=== PATIENT | female | born 1990 | race Caucasian/White ===

== ENCOUNTER → 2016-12-20 | Outpatient (CLI) | payer BC ==
--- NOTE | 2016-12-20 14:53 | Diagnostic Imaging Report ---
Two views of the right knee. INDICATION: Right knee pain. FINDINGS: There is no fracture, dislocation or radiopaque foreign body. There is a moderate suprapatellar effusion. No significant joint space narrowing is seen. Very minimal osteophyte formation of the patellofemoral and medial compartments are noted. IMPRESSION: There is a moderate suprapatellar effusion. No fracture seen. Dictated by: Dictated on workstation # [id number]
== END ==
LOC: RAD 13:37
PROVIDERS: ATTEND Nurse Practitioner Family
DX: M25.461 Effusion, right knee (principal)
CPT/HCPCS: 73562

== ENCOUNTER 2020-09-24 15:17 | Emergency (ER) | payer BC ==
[~2020-09-24] VITALS: Ht 180 cm; Wt 99.8 kg
[2020-09-24] MEDS ORDERED: LIDOCAINE 1% INJ 20 ML 20 ML VIAL INJ ONE (15:30)
[2020-09-24] MEDS ORDERED: TETANUS,DIPTH,PERTUSS P/F (BOOSTRIX) 0.5 ML VIAL IM ONE (15:45)
--- NOTE | 2020-09-24 15:56 | Diagnostic Imaging Report ---
EXAMINATION: Left hand at 3:42 PM. INDICATION: Finger pain. TECHNIQUE/COMPARISON: A single AP view of the hand and AP and lateral views of the 3rd digit were obtained. There are no prior studies available for comparison. FINDINGS: By history, the patient has had a saw injury to the tip of the 3rd digit. There is irregularity of the soft tissues in this area, consistent with a laceration. There is no fracture identified, however, and there is no sign of a radiopaque foreign body. No other bony abnormality of the hand is identified. IMPRESSION: There is evidence of a soft tissue injury to the tip of the 3rd digit but there is no sign of a fracture or of a radiopaque foreign body. Dictated by: Dictated on workstation # [id number]
--- NOTE | 2020-09-24 17:04 | ED Lower Extremity ---
General Chief Complaint: Laceration Stated Complaint: R HAND CUT FINGERS Nursing Triage Note: PT AMB TO FT 1 W C/O FINGER PAIN AFTER CUTTING THE TIP HER 3RD FINGER ON A TABLE SAW AROUND 1515 TODAY. WOUND APPEARS TO HAVE MILD BLEEDING. PT REPORTS SHES NOT UTD ON TETANUS VACCINE. Source: patient Exam Limitations: no limitations History of Present Illness Date Seen by Provider: Sep 24, 2020 Allergies and Home Medications Allergies Coded Allergies: No Known Drug Allergies (Unverified , 09/24/20) Home Medications Sulfamethoxazole/Trimethoprim 1 Each Tablet, 1 EACH PO BID Prescribed by: LINDA KENT on 09/24/20 6534 Past Iavqfsk-Jgfxdk-Icztjq Hx Patient Social History Tobacco Use?: No Smoking Status: Never a Smoker Substance use?: No Alcohol Use?: No Pt feels they are or have been: No Immunizations Up To Date First/Initial COVID19 Vaccinat: 2020 Second COVID19 Vaccination Josep: 2020 COVID19 Vaccine Jute Bag Clipper: GLADYS MODERNA Physical Exam Vital Signs Vital Signs - First Documented 09/24/20 15:28 Temp 37.0 Pulse 57 Resp 22 B/P (MAP) 130/85 (100) Pulse Ox 98 O2 Delivery Room Air Capillary Refill : Less Than 3 Seconds Height, Weight, BMI Height: '" Weight: lbs. oz. kg; 30.00 BMI Method: Procedures/Interventions Wound Location: Upper Extremities Other Wound Location Left third finger Wound Length (cm): 2 Wound's Depth, Shape: irregular, flap, nail-avulsed, sub Q Wound Explored: clean Irrigated w/ Saline (ccs): 500 Betadine Prep?: Yes Anesthesia: 1% Lidocaine Volume Anesthetic (ccs): 6 Suture: Vicryl Suture Size: 3-0 Number of Sutures: 7 Layer Closure?: 1 Sterile Dressing Applied?: Yes Progress Skin was scrubbed with alcohol prior to performing digital block. Anesthesia was achieved with digital block. Cut surface was also sprayed with lidocaine. Wound was cleaned with saline and chlorhexidine. It was then rinsed with al cohol. Cleaning caused bleeding to occur. A finger tourniquet was applied, Betadine prep was applied and the wound was repaired with Vicryl suture. Care was taken to line up the flap edges carefully. There was a small amount of nail and nailbed skin tissue avulsed. This area was a few millimeters in diameter and was left open. After repair was complete, finger tourniquet was removed and there was hemostasis. Patient tolerated the procedure well. Progress/Results/Core Measures Results/Orders My Orders Orders - LINDA MCKENZIE MD Finger(S) (09/24/20 15:30) Lidocaine 1% Inj 20 Ml (Xylocaine 1% Inj (09/24/20 15:30) Dipht,Pertuss(Acell),Tet Adult (Boostrix (09/24/20 15:45) Medications Given in ED Current Medications Medications Dose Ordered Sig/Elaine Route Start Time Stop Time Status Last Admin Dose Admin Diphtheria/ Tetanus/Acell Pertussis 0.5 ml ONCE ONCE IM 09/24/20 15:45 09/24/20 15:46 DC 09/24/20 16:08 0.5 ML Lidocaine HCl 20 ml ONCE ONCE INJ 09/24/20 15:30 09/24/20 15:32 DC 09/24/20 16:09 20 ML Vital Signs/I&O 09/24/20 09/24/20 15:28 17:14 Temp 37.0 Pulse 57 53 Resp 22 18 B/P (MAP) 130/85 (100) 124/86 Pulse Ox 98 98 O2 Delivery Room Air Room Air Blood Pressure Mean: 100 Diagnostic Imaging Diagonstic Imaging: Xray Plain Films/CT/US/NM/MRI: hand Comments Hand x-ray viewed by me and report reviewed. See report below: NAME: MARLA VANEGAS [facility] REC#: [id number] PT STATUS: REG ER : 1990 PHYSICIAN: LINDA MCKENZIE MD ADMIT DATE: 09/24/20/ER Signed Date of Exam:09/24/20 FINGER(S) EXAMINATION: Left hand at 3:42 PM. INDICATION: Finger pain. TECHNIQUE/COMPARISON: A single AP view of the hand and AP and lateral views of the 3rd digit were obtained. There are no prior studies available for comparison. FINDINGS: By history, the patient has had a saw injury to the tip of the 3rd digit. There is irregularity of the soft tissues in this area, consistent with a laceration. There is no fracture identified, however, and there is no sign of a radiopaque foreign body. No other bony abnormality of the hand is identified. IMPRESSION: There is evidence of a soft tissue injury to the tip of the 3rd digit but there is no sign of a fracture or of a radiopaque foreign body. Dictated by: Dictated on workstation # [id number] Dict: 09/24/20 1547 Trans: 09/24/20 1654 [id number] Interpreted by: JULIANA ROOT MD Electronically signed by: JULIANA ROOT MD 09/24/20 1654 Departure Impression Primary Impression: Finger laceration Qualified Codes: S61.313A - Laceration without foreign body of left middle finger with damage to nail, initial encounter Disposition: HOME, SELF-CARE Condition: Improved Departure-Patient Inst. Decision time for Depature: 17:02 Referrals: LUPE BANUELOS MD (PCP/Family) Primary Care Physician Patient Instructions: Laceration Repair With Stitches (DC) Add. Discharge Instructions: Keep the wound clean and dry except for normal showering and handwashing until it is sealed over. Do not submerge for at least 2 weeks and until tissue has closed over the wound. You may leave open to air when at rest in a clean environment. Cover when sleeping or active or in dirty environments. Use the splint to protect the fingertip when you are active. Monitor for signs of infection such as increasing redness, increasing swelling, puslike drainage, or fever. Return to care promptly if you notice the symptoms. Your stitches are absorbable. They should absorb within 2 weeks and the knots should slough off. Call with questions or concerns. Return to the ER if you have any other problems or worsening of condition. All discharge instructions reviewed with patient and/or family. Voiced understanding. Scripts Sulfamethoxazole/Trimethoprim (Bactrim Ds Tablet) 1 Each Tablet 1 EACH PO BID, #14 TAB Prov: LINDA MCKENZIE MD 09/24/20 LINDA MCKENZIE MD Sep 24, 2020 17:04
[2020-09-24 17:14] VITALS: BP 124/86
[2020-09-24] MEDS ORDERED: SULF1TAB38 PO (17:44)
== END 2020-09-24 17:12 | disposition home or self-care (01) ==
LOC: EDUNIT# 15:17 → ER 15:19
DX: S61.313A Laceration without foreign body of left middle finger with damage to nail, initial encounter (principal); Z23 Encounter for immunization; W31.2XXA Contact with powered woodworking and forming machines, initial encounter
CPT/HCPCS: 73140; 90715

== ENCOUNTER → 2022-11-11 | Outpatient (CLI) | payer BC ==
[~2022-11-11] MED LIST: SULF1TAB38 PO
--- NOTE | 2022-11-11 09:42 | Diagnostic Imaging Report ---
PROCEDURE: US Gallbladder. TECHNIQUE: Multiple real-time grayscale images were obtained over the right upper quadrant in various projections. INDICATION: Epigastric pain. FINDINGS: 17.1 cm liver normal in echotexture and homogenous. No bile duct dilatation. The gallbladder appeared normal. No stone or sludge. The visible portions of the pancreas normal. Portions of its tail obscured by gas. The aorta and IVC appeared normal in caliber. The unobstructed right kidney 10.2 cm appeared normal. No ascites. No fluid collection. IMPRESSION: Normal right upper quadrant ultrasound. Dictated by: Dictated on workstation # [id number]
== END ==
LOC: RAD 07:45
PROVIDERS: ATTEND Family Medicine
DX: R10.11 Right upper quadrant pain (principal)
CPT/HCPCS: 76705

== ENCOUNTER 2022-11-30 07:26 | Day surgery (SDC) | payer BC ==
[~2022-11-30] VITALS: Ht 180.3 cm; Wt 110.7 kg
[~2022-11-30 07:26] MED LIST changes: +PANT40TA52 PO
[2022-11-30] MEDS ORDERED: LACTATED RINGERS 1,000 ML 1,000 ML IV STA (07:35)
[2022-11-30] MEDS ORDERED: HURRICAINE EXT TUBE (BENZOCAINE) XX PRN (07:45)
[2022-11-30 07:50] VITALS: BP 111/58
--- NOTE | 2022-11-30 08:49 | Progress Note-Pre Operative ---
Pre-Operative Progress Note Date H&P Reviewed: Nov 30, 2022 Time H&P Reviewed: 08:31 History & Physical: H&P Reviewed, Patient Examed, No changes noted Pre-Operative Diagnosis: burning epigastric pain GEETA GRIMES DO Nov 30, 2022 08:49
--- NOTE | 2022-11-30 09:08 | Discharge Inst-Simple/Standard ---
Discharge Inst-Standard Patient Instructions/Follow Up Plan of Care/Instructions/FU: 2 weeks Benjamin Activity as Tolerated: Yes Discharge Diet: Regular Diet GEETA GRIMES DO Nov 30, 2022 09:08
[2022-11-30 09:10] VITALS: BP 108/67
--- NOTE | 2022-11-30 09:10 | Progress Note-Post Operative ---
Post-Operative Progess Note Surgeon (s)/Nuclear Power Plant Engineer (s) Surgeon GEETA GRIMES DO Nuclear Power Plant Engineer: na Pre-Operative Diagnosis burning epigastric pain Post-Operative Diagnosis normal egd Procedure & Operative Findings Date of Procedure 11/30/22 Procedure Performed/Findings egd c biopsies Anesthesia Type per fish cleaner Estimated Blood Loss Estimated blood loss (mL): none Specimens/Packing Specimens Removed antrum, ge GEETA GRIMES DO Nov 30, 2022 09:09
--- NOTE | 2022-11-30 09:10 | Anesthesia-General Post-Op ---
MAC Patient Condition Mental Status/LOC: Same as Preop Cardiovascular: Satisfactory Nausea/Vomiting: Absent Respiratory: Satisfactory Pain: Controlled Complications: Absent Post Op Complications Complications None Follow Up Care/Instructions Patient Instructions None needed. Anesthesiology Discharge Order Discharge Order Patient is doing well, no complaints, stable vital signs, no apparent adverse anesthesia problems. No complications reported per nursing. DIANE YU CRNA Nov 30, 2022 09:10
[2022-11-30 09:15] VITALS: BP 112/66
[2022-11-30 09:20] VITALS: BP 113/77
[2022-11-30 09:48] VITALS: BP 113/77
--- NOTE | 2022-11-30 16:36 | OPERATIVE REPORT ---
DATE OF SERVICE: 11/30/2022 PREOPERATIVE DIAGNOSIS: Burning epigastric abdominal pain. POSTOPERATIVE DIAGNOSIS: Normal EGD. PROCEDURE: EGD with biopsy. SURGEON: Geeta Alexander DO ANESTHESIA: Per ELEMENTARY SUPERVISOR. ESTIMATED BLOOD LOSS: None. COMPLICATIONS: None. INDICATIONS: The patient is a 32-year-old female with burning epigastric abdominal pain. She understands risks and benefits of procedure and wishes to proceed. Consent was signed in chart. DESCRIPTION OF PROCEDURE: The patient was taken to endoscopy suite, placed in left lateral recumbent position. Timeout was performed. Scope was inserted in the mouth, down the esophagus, stomach, into the duodenum without difficulty. No polyps, masses or ulcerations in the duodenum. Scope was slowly retracted back into stomach where it was further insufflated. Slight erythematous changes in the antrum. No polyps, masses or ulcerations. Biopsy of the antrum was obtained. Scope was retroflexed noting no other pathology. Scope was returned to its normal position, slowly withdrawn until distal esophagus. Biopsy of GE junction was obtained. Possibly some slight reflux esophagitis, but no polyps, masses or ulcerations. Scope was slowly retracted back until completely removed, noting no other pathology. The patient tolerated the procedure well without complications, taken to recovery room in stable condition. RECOMMENDATIONS: The patient will continue on Protonix 40 mg daily. He will follow up on pathology in 2 weeks. Depending on pathology results, we would consider working on gallbladder. Job ID: [id number] DocumentID: [id number] Dictated Date: 11/30/2022 09:11:43 Customs Consultant Date: 11/30/2022 16:34:00 Dictated By: GEETA ALEXANDER DO
== END 2022-11-30 09:48 | disposition home or self-care (01) ==
LOC: ENDO 07:26
PROVIDERS: ATTEND Surgery
DX: K29.50 Unspecified chronic gastritis without bleeding (principal); K20.0 Eosinophilic esophagitis; K31.89 Other diseases of stomach and duodenum
CPT/HCPCS: 84703

== ENCOUNTER → 2022-12-29 | Outpatient (CLI) | payer BC ==
--- NOTE | 2022-12-29 11:52 | Diagnostic Imaging Report ---
INDICATION: Right calf strain. Sonographic interrogation of the right calf was performed. No focal fluid collection or mass is detected. IMPRESSION: No sonographic abnormality is identified. If there is concern for muscle tear, MRI would be useful for better characterization. Dictated by: Dictated on workstation # [id number]
== END ==
LOC: RAD 11:05
PROVIDERS: ATTEND Nurse Practitioner Family
DX: S39.012A Strain of muscle, fascia and tendon of lower back, initial encounter (principal); X58.XXXA Exposure to other specified factors, initial encounter
CPT/HCPCS: 76881